=== PATIENT | male | born 1985 | race African-American/Black ===

== ENCOUNTER 2018-06-29 18:11 | Emergency (ER) | payer OTHER ==
[~2018-06-29] VITALS: Ht 165.1 cm; Wt 94.3 kg
[2018-06-29 18:14] VITALS: BP 143/100
[2018-06-29] MEDS ORDERED: ULTRAM50 MG PO (19:58)
[2018-06-29] MEDS ORDERED: KEFLEX500 MG PO (19:58)
[2018-06-29] MEDS ORDERED: MOTRIN800 MG PO (19:58)
== END 2018-06-29 20:31 | disposition home or self-care (01) ==
LOC: EME 18:11
DX: S62.641A Nondisplaced fracture of proximal phalanx of left index finger, initial encounter for closed fracture (principal); S61.231A Puncture wound without foreign body of left index finger without damage to nail, initial encounter; W29.4XXA Contact with nail gun, initial encounter; W45.0XXA Nail entering through skin, initial encounter; Z23 Encounter for immunization
CPT/HCPCS: 73140; 99281; 99284